=== PATIENT | male | born 1955 | race Caucasian/White ===

== ENCOUNTER 2017-12-10 12:58 | Observation (INO) ==
[2017-12-10] MEDS ORDERED: Sod Chloride 0.9% Inj 1,000 ML IV.SIG ONE (13:31)
--- NOTE | 2017-12-10 13:38 | ED ---
HPI General Chief complaint: Syncope Stated complaint: Medical Time Seen by Provider: 12/10/17 13:27 Source: patient and RN notes reviewed Mode of arrival: ambulatory Limitations: no limitations History of Present Illness HPI narrative: 62-year-old male presents to the emergency department for evaluation of bilateral eye blurriness. Patient states that he was traveling from [place] now [place]. He states that around noon he started having bilateral eye blurriness. He states it progressively worsened to where he would have trouble making out of vehicles and then would get slightly better and get worse again. He pulled over at a gas station do this over 911 was called. Patient states he has pain to the base of his neck. Patient reports history of cardiac stents on Plavix, vasovagal, hypertension. He reports associated lightheadedness. He denies chest pain or shortness of breath. Moderate severity. Onset (ago): hour(s) (1.5) Location: head Radiation: non-radiation Severity: moderate Severity scale (1-10): 6 Quality: dull Pain Consistency: constant Relieving factors: none Exacerbating factors: none Associated symptoms: other (visual changes) Related Data Home Medications Medication Instructions Recorded Confirmed Aspir-81 81 mg PO DAILY 12/10/17 12/10/17 carvedilol 12.5 mg PO BID 12/10/17 12/10/17 clonidine HCl 0.1 mg PO TID PRN 12/10/17 12/10/17 clopidogrel [Plavix] 75 mg PO DAILY 12/10/17 12/10/17 eyahh-1s-qfm-epa-fish oil [Stuart-3 2,000 mg PO DAILY 12/10/17 12/10/17 Fish Oil] ramipril 10 mg PO DAILY 12/10/17 12/10/17 Allergies Allergy/AdvReac Type Severity Reaction Status Date / Time hydralazine Allergy Chest Pain Verified 12/10/17 13:24 levofloxacin Allergy Dizziness Verified 12/10/17 13:24 metoprolol Allergy Bradycardia Verified 12/10/17 13:22 metronidazole Allergy Cough Verified 12/10/17 13:24 olmesartan Allergy Diarrhea Verified 12/10/17 13:24 Gupufow-Xly-Uvp Reductase Allergy Chills Verified 12/10/17 13:24 Inhibitor Review of Systems Except as stated in HPI: all other systems reviewed are negative [facility] Medical History Medical History Hx of heart artery stent (Chronic) Hypercholesteremia (Chronic) Hypertension (Chronic) CAD (coronary artery disease) (Chronic) Status post placement of implantable loop recorder (Chronic) Vasovagal near syncope (Chronic) Surgical History Surgical History Hx of appendectomy (Resolved) Social History Social History Substance History: No History of Abuse Second Hand Smoke Exposure: No Smoking Status: Never smoker How Often Do You Have a Drink Containing Alcohol: Never Recent Travel in [facility] within the Last 8 Weeks: No Recent Out of Country Travel within the Last 8 Weeks: No Immunization History Tetanus Immunization: <5 Years Hx Influenza Vaccine This Season: Yes Exam Narrative Exam Narrative: GENERAL: Well-nourished, well-developed male patient, ambulatory. Afebrile. SKIN: Focused skin assessment warm/dry. HEAD: Normocephalic. Atraumatic. EYES: No scleral icterus. No injection or drainage. PERRLA. EOM intact. ENT: Mucosa pink and moist. No erythema or exudates. No uvular edema. No uvular , palatal, or tonsillar deviation. Airway patent. Nasal turbinates appear normal without nasal blood, purulent drainage or septal hematoma. Bilateral tympanic membranes clear without erythema or perforation. NECK: Supple, trachea midline. No JVD or lymphadenopathy. CARDIOVASCULAR: Regular rate and rhythm without murmurs, gallops, or rubs. Bilateral radial and pedal pulses are 2+ RESPIRATORY: Breath sounds equal bilaterally. No accessory muscle use. Lung sounds are clear to auscultation GASTROINTESTINAL: Abdomen soft, non-tender, nondistended. MUSCULOSKELETAL: No cyanosis, or edema. Bilateral upper and lower extremity strength 5/5. All extremities are neurovascularly intact. BACK: Nontender without obvious deformity. NEUROLOGICAL: Awake and alert. Cranial nerves II through XII intact. Motor and sensory grossly within normal limits. Five out of 5 muscle strength in all muscle groups. Normal speech. Finger to nose is normal bilaterally. Heel to fischer is normal bilaterally. Course Initial Documented Vital Signs Temperature 98.2 F 12/10/17 13:19 Pulse Rate 63 12/10/17 13:19 Respiratory Rate 14 12/10/17 13:19 Blood Pressure 187/94 H 12/10/17 13:19 Pulse Oximetry 97 12/10/17 13:19 Last Documented Vital Signs Temperature 98.2 F 12/10/17 13:19 Pulse Rate 69 12/10/17 15:03 Respiratory Rate 15 12/10/17 15:03 Blood Pressure 163/91 H 12/10/17 15:03 Pulse Oximetry 97 12/10/17 15:03 Medical Decision Making YENNI Attestation YENNI supervised visit: Yes Attestation: The history, exam, and medical decision-making in the associated mid-level provider note were completed with my assistance. I reviewed and agree with the findings presented. I attest that I had a [id number] encounter with the patient on the same day, and personally performed and documented my assessment and findings in the medical record. *My assessment and Findings: Is a 62-year-old man who presents to the emergency department with intermittent binocular blurry vision. Medial little bit of pinkness with it, ongoing while he was driving. Etiology is unclear. He has had vasovagal syncopal episodes in the past. I think this is probably 8 given the binocular symptoms. Difficult to prove. Multiple risk factors for cerebrovascular disease. Recommend further evaluation admission for TIA rule out. MDM Narrative Medical decision making narrative: 62-year-old male presents to the emergency department for evaluation of lightheadedness, blurry vision. IV access is obtained. EKG, CBC, CMP, magnesium, CK, troponin, PTT, PT/INR, CT the brain are ordered and pending. Patient is given normal saline 1 L IV bolus EKG shows sinus rhythm, heart rate 60. CBC shows no acute abnormalities. CMP shows elevated creatinine 1.42, hyperglycemia 108. Magnesium is 2.3. CK is 92. Troponin is less than 0.02. PTT is 26.4. PT/INR is 9.8/1.0. CT of the brain is negative. Patient took his Plavix and his aspirin this morning. My attending physician, Dr. Contreras, also examined patient. He recommends admission for TIA workup. Differential Diagnosis Differential Diagnosis: TIA versus CVA versus adrenal hemorrhage versus electrolyte abnormality versus hypotension versus vasovagal Medical Records Medical records reviewed: Yes I reviewed the patient's medical records. Lab Data Result diagrams: 12/10/17 13:54 12/10/17 13:54 Lab Results 12/10/17 12/10/17 12/10/17 Range/Units 13:54 13:54 13:54 WBC 7.4 (4.0-11.0) th/mm3 RBC 4.63 (4.50-5.90) mil/mm3 Hgb 14.8 (13.0-17.0) gm/dL Hct 41.5 (39.0-51.0) % MCV 89.6 (80.0-100.0) fL MCH 32.0 (27.0-34.0) pg MCHC 35.7 (32.0-36.0) % RDW 14.1 (11.6-17.2) % Plt Count 230 (150-450) th/mm3 MPV 7.3 (7.0-11.0) fL Neut % (Auto) 61.0 (16.0-70.0) % Lymph % (Auto) 27.8 (9.0-44.0) % Sanborn % (Auto) 8.8 H (0.0-8.0) % Eos % (Auto) 1.7 (0.0-4.0) % Baso % (Auto) 0.7 (0.0-2.0) % Neut # (Auto) 4.5 (1.8-7.7) th/mm3 Lymph # (Auto) 2.1 (1.0-4.8) th/mm3 Sanborn # (Auto) 0.7 (0.0-0.9) th/mm3 Eos # (Auto) 0.1 (0.0-0.4) th/mm3 Baso # (Auto) 0.1 (0.0-0.2) th/mm3 WBC Differential . Differential Comment Auto diff final PT 9.8 (9.8-11.6) sec INR 1.0 Ratio APTT 26.4 (24.3-30.1) sec Sodium 141 (136-145) meq/L Potassium 3.8 (3.5-5.1) meq/L Chloride 107 (98-107) meq/L Carbon Dioxide 25.2 (21.0-32.0) meq/L Anion Gap 9 (5-15) meq/L BUN 14 (7-18) mg/dL Creatinine 1.42 H (0.60-1.30) mg/dL Estimated GFR 50 L (>89) mL/min Random Glucose 108 H (74-106) mg/dL Calcium 8.4 L (8.5-10.1) mg/dL Magnesium (1.5-2.5) mg/dL Total Bilirubin 0.4 (0.2-1.0) mg/dL AST 21 (15-37) U/L ALT 30 (12-78) U/L Alkaline Phosphatase 73 (45-117) U/L Total Creatine Kinase 92 (39-308) U/L Troponin I Less than 0.02 L (0.02-0.05) ng/mL Total Protein 7.3 (6.4-8.2) g/dL Albumin 3.6 (3.4-5.0) g/dL 12/10/17 Range/Units 13:54 WBC (4.0-11.0) th/mm3 RBC (4.50-5.90) mil/mm3 Hgb (13.0-17.0) gm/dL Hct (39.0-51.0) % MCV (80.0-100.0) fL MCH (27.0-34.0) pg MCHC (32.0-36.0) % RDW (11.6-17.2) % Plt Count (150-450) th/mm3 MPV (7.0-11.0) fL Neut % (Auto) (16.0-70.0) % Lymph % (Auto) (9.0-44.0) % Sanborn % (Auto) (0.0-8.0) % Eos % (Auto) (0.0-4.0) % Baso % (Auto) (0.0-2.0) % Neut # (Auto) (1.8-7.7) th/mm3 Lymph # (Auto) (1.0-4.8) th/mm3 Sanborn # (Auto) (0.0-0.9) th/mm3 Eos # (Auto) (0.0-0.4) th/mm3 Baso # (Auto) (0.0-0.2) th/mm3 WBC Differential Differential Comment PT (9.8-11.6) sec INR Ratio APTT (24.3-30.1) sec Sodium (136-145) meq/L Potassium (3.5-5.1) meq/L Chloride (98-107) meq/L Carbon Dioxide (21.0-32.0) meq/L Anion Gap (5-15) meq/L BUN (7-18) mg/dL Creatinine (0.60-1.30) mg/dL Estimated GFR (>89) mL/min Random Glucose (74-106) mg/dL Calcium (8.5-10.1) mg/dL Magnesium 2.3 (1.5-2.5) mg/dL Total Bilirubin (0.2-1.0) mg/dL AST (15-37) U/L ALT (12-78) U/L Alkaline Phosphatase (45-117) U/L Total Creatine Kinase (39-308) U/L Troponin I (0.02-0.05) ng/mL Total Protein (6.4-8.2) g/dL Albumin (3.4-5.0) g/dL Imaging Data Radiologist's impression: Head CT 12/10/17 13:31 CONCLUSION: 1. Negative CT Head non contrast. . Discharge Plan Discharge Disposition Patient Disposition: 30 Still Patient Discharge Details Diagnosis: Visual changes Physicians Team ED Provider: Hi Falcon ED Midlevel Provider: Saadia Spicer Primary Care Provider: UNKNOWN, Rxs /Orders / Referrals /Forms Prescriptions: No Action Aspir-81 81 mg PO DAILY RF: 0 clonidine HCl 0.1 mg Tablet 0.1 mg PO TID PRN (Reason: Hypertension) RF: 0 carvedilol 12.5 mg Tablet 12.5 mg PO BID RF: 0 clopidogrel [Plavix] 75 mg Tablet 75 mg PO DAILY RF: 0 ramipril 10 mg Capsule 10 mg PO DAILY RF: 0 cejuz-1g-flb-epa-fish oil [Stuart-3 Fish Oil] 300-1,000 mg Capsule 2,000 mg PO DAILY RF: 0 Discharge Interventions Interventions: Vital Signs Last Done: 12/10/17 15:03 Status ED Status: With Doctor
[2017-12-10 14:05] LABS: Baso # (Auto) 0.1 th/mm3 (0.0-0.2); Baso % (Auto) 0.7 % (0.0-2.0); Eos # (Auto) 0.1 th/mm3 (0.0-0.4); Eos % (Auto) 1.7 % (0.0-4.0); Hematocrit 41.5 % (39.0-51.0); Hemoglobin 14.8 gm/dL (13.0-17.0); Lymph # (Auto) 2.1 th/mm3 (1.0-4.8); Lymph % (Auto) 27.8 % (9.0-44.0); Mean Corpuscular HGB Conc 35.7 % (32.0-36.0); Mean Corpuscular Volume 89.6 fL (80.0-100.0); Mean Platelet Volume 7.3 fL (7.0-11.0); Mono # (Auto) 0.7 th/mm3 (0.0-0.9); Mono % (Auto) 8.8 % (0.0-8.0); Neut # (Auto) 4.5 th/mm3 (1.8-7.7); Platelet Count 230 th/mm3 (150-450); Red Blood Count 4.63 mil/mm3 (4.50-5.90); Red Cell Distribution Width 14.1 % (11.6-17.2); White Blood Count 7.4 th/mm3 (4.0-11.0)
[2017-12-10 14:13] LABS: Activated Partial Thrombo Time 26.4 sec (24.3-30.1); Prothrombin Time 9.8 sec (9.8-11.6)
[2017-12-10 14:34] LABS: Alanine Aminotransferase 30 U/L (12-78); Albumin 3.6 g/dL (3.4-5.0); Alkaline Phosphatase 73 U/L (45-117); Anion Gap 9 meq/L (5-15); Aspartate Aminotransferase 21 U/L (15-37); Blood Urea Nitrogen 14 mg/dL (7-18); Calcium 8.4 mg/dL (8.5-10.1); Carbon Dioxide 25.2 meq/L (21.0-32.0); Chloride 107 meq/L (98-107); Glomerular Filtration Rate 50 mL/min (>89); Glucose,Random 108 mg/dL (74-106); Potassium 3.8 meq/L (3.5-5.1); Sodium 141 meq/L (136-145); Total Protein 7.3 g/dL (6.4-8.2)
[2017-12-10 14:37] LABS: Creatine Kinase 92 U/L (39-308)
--- NOTE | 2017-12-10 14:47 | CT ---
EXAM DATE: 12/10/2017 2:45 PM EDT AGE/SEX: 62 years / Male INDICATIONS: Dizziness, visual disturbance, numbness in left fingers. CLINICAL DATA: This is the patient's initial encounter. Patient reports that signs and symptoms have been present for 1 day and indicates a pain score of 2/10. MEDICAL/SURGICAL HISTORY: Hypertension. Carotid stent. Appendectomy. RADIATION DOSE: 35.68 CTDI (mGy) COMPARISON: No prior exams available for comparison. TECHNIQUE: CT of the head without contrast. Using automated exposure control and adjustment of the mA and/or kV according to patient size, radiation dose was kept as low as reasonably achievable to ob tain optimal diagnostic quality images. DICOM format image data is available electronically for revi ew and comparison. FINDINGS: Cerebrum: The ventricles are normal for age. No evidence of midline shift, mass lesion, hemorrhage or acute infarction. No extraaxial fluid collections are seen. Posterior Fossa: The cerebellum and brainstem are intact. The 4th ventricle is midline. The cerebe llopontine angle is unremarkable. Extracranial: The visualized portion of the orbits is intact. Skull: The calvaria is intact. No evidence of skull fracture. CONCLUSION: 1. Negative CT Head non contrast. . Electronically signed by: Jason Sam MD 12/10/2017 2:46 PM EDT
--- NOTE | 2017-12-10 16:22 | P.HPFP ---
History of Present Illness Primary Care Physician: UNKNOWN <Jose Goetz 12/11/17 14:15> UNKNOWN <Vaibhav Arceo 12/10/17 16:22> Chief Complaint: blurry vision <Vaibhav riley 12/10/17 17:24> History of Present Illness: 61-year-old male with history of hypertension, coronary artery disease, vasovagal hypertension presents with blurry vision. Patient [place] [address] [place] to [place], where they just moved, when he started having blurry vision. He also felt lightheaded and weak at that time. He pulled off the road. Also started having a headache in the back of his neck. [place] here to the hospital. He states it started suddenly. [place] like he was going to pass out. Thought initially it was allergies. Denies any pain. Did not lose his vision, just blurry. States he felt some tingling on his left fourth and fifth fingers. Denies any bowel or bladder changes. States he has never had anything like this before. Does not drink alcohol. No recent medication changes. Has never passed out, but does have vasovagal symptoms occasionally. Denies any weakness. Denies any slurred speech. Never a smoker. States he drinks lots of water. Just established with a new PCP in [place] on Friday. 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 <Vaibhav Arceo 12/10/17 17:24> - Diagnosis (1) Visual changes (2) HTN (hypertension) (3) Elevated serum creatinine (4) CAD (coronary artery disease) (5) Nutrition, metabolism, and development symptoms <Jose Goetz 12/11/17 14:15> (1) Visual changes (2) HTN (hypertension) (3) Elevated serum creatinine (4) CAD (coronary artery disease) (5) Nutrition, metabolism, and development symptoms <Vaibhav Arceo 12/10/17 17:01> Review of Systems Constitutional: Denies chills, Denies fever(s), Denies night sweats, Denies weight loss <Vaibhav Arceo 12/10/17 16:22> Eyes: Reports blurry vision, Denies discharge <Vaibhav Arceo 12/10/17 16: 22> Ears, Nose, Mouth, and Throat: Denies abnormal hearing, Denies difficulty swallowing, Denies facial pain, Denies nasal discharge, Denies neck lump, Denies sore throat <MortezarosemaryVaibhav Mejia 12/10/17 16:22> Cardiovascular: Denies chest pain, Denies shortness of breath <LaynerennyVaibhav 12/10/17 16:22> Gastrointestinal: Denies change in stools, Denies coffee ground vomit, Denies nausea, Denies vomiting <LaynerennyVaibhav 12/10/17 16:22> Musculoskeletal: Denies abnormal walking, Denies back pain, Denies muscle cramps , Denies muscle weakness <MortezarosemaryVaibhav 12/10/17 17:24> Skin/Breast: Denies rash <LaynerennyVaibhav 12/10/17 17:24> Neurologic: Reports confusion, Reports dizziness, Reports headache(s), Reports tingling, Denies fainting, Denies frequent falls, Denies memory loss, Denies radiating pain, Denies restless legs, Denies convulsions, Denies seizure-like activity, Denies sensory deficit, Denies tremor(s) <MortezarosemaryVaibhav 16:22> Psychiatric: Denies anxiety, Denies mood swings, Denies panic attacks <Mortezarosemary Vaibhav 12/10/17 17:24> Endocrine: Denies cold intolerance, Denies excessive sweating, Denies rapid, pounding, or irregular heartbeat <Vaibhav Arceo 12/10/17 17:24> [facility] - History History Provided By: Butadiene Converter Operator / EMT <MortezarosemaryVaibhav Mejia 12/10/17 16:22> - Medical History Medical History: Medical History (Last Updated 12/10/17 @ 13:56 by Hi Falcon MD) Hx of heart artery stent Hypercholesteremia Hypertension CAD (coronary artery disease) Status post placement of implantable loop recorder Vasovagal near syncope <Jose Goetz - 12/11/17 14:15> Medical History (Last Updated 12/10/17 @ 13:56 by Hi Falcon MD) Hx of heart artery stent Hypercholesteremia Hypertension CAD (coronary artery disease) Status post placement of implantable loop recorder Vasovagal near syncope <LaynerennyVaibhav Roberto 12/10/17 16:22> - Surgical History Surgical History: Surgical History (Last Reviewed 12/10/17 @ 13:53 by Hi Falcon MD) Hx of appendectomy <Jose Goetz - 12/11/17 14:15> Surgical History (Last Reviewed 12/10/17 @ 13:53 by Hi Falcon MD) Hx of appendectomy <LayneVaibhav lawson 12/10/17 16:22> - Tobacco History Second Hand Smoke Exposure: No <LaynerennyVaibhav Roberto 12/10/17 16:22> Smoking Status: Never smoker <MortezarosemaryVaibhav Roberto Munoz 12/10/17 16:22> - Alcohol History How Often Do You Have a Drink Containing Alcohol: Monthly or less <MortezaVaibhav riley 12/10/17 17:24> - Substance Use History Substance History: No History of Abuse <MortezaVaibhav riley 12/10/17 16:22> - Travel History [facility] Travel in the [facility] Within the Last 8 Weeks: No <LayneVaibhav lawson 12/10 16:22> Recent Travel Out of the Country Within the Last 8 Weeks: No <MortezaVaibhav riley 12/10/17 16:22> - Immunization History Tetanus Immunization: <5 Years <LaynerennyVaibhav Roberto 12/10/17 16:22> Hx Influenza Vaccine This Season: Yes <MortezaVaibhav riley 12/10/17 16:22> Medications and Allergies Allergies Allergy/AdvReac Type Severity Reaction Status Date / Time hydralazine Allergy Chest Pain Verified 12/10/17 13:24 levofloxacin Allergy Dizziness Verified 12/10/17 13:24 metoprolol Allergy Bradycardia Verified 12/10/17 13:22 metronidazole Allergy Cough Verified 12/10/17 13:24 olmesartan Allergy Diarrhea Verified 12/10/17 13:24 [id number]-[id number] Reductase Allergy Chills Verified 12/10/17 13:24 Inhibitor <Jose Goetz - 12/11/17 14:15> Home Medications Medication Instructions Recorded Confirmed Type Aspir-81 81 mg PO DAILY 12/10/17 12/10/17 History RX: carvedilol 12.5 mg PO BID 12/10/17 12/10/17 History RX: clonidine HCl 0.1 mg PO TID PRN 12/10/17 12/10/17 History RX: clopidogrel [Plavix] 75 mg PO DAILY 12/10/17 12/10/17 History RX: oiumz-2n-tav-epa-fish oil 2,000 mg PO DAILY 12/10/17 12/10/17 History [[place]-3 Fish Oil] RX: ramipril 10 mg PO DAILY 12/10/17 12/10/17 History <Jose Goetz - 12/11/17 14:15> Active Medications: Active Medications Sodium Chloride (Ns Flush) 2 ml IV.FLUSH PRN PRN PRN Reason: FLUSH AFTER USING IV ACCESS <Vaibhav Arceo - 12/10/17 16:22> Exam Vital signs: Vital Signs 12/10/17 15:03 12/10/17 16:46 12/10/17 18:18 Temperature 98.0 F Pulse Rate 69 69 62 Respiratory Rate 15 16 14 Blood Pressure 163/91 H 169/105 H 175/99 H Pulse Oximetry 97 99 99 12/10/17 18:23 12/10/17 20:09 12/10/17 22:43 Temperature 97.9 F 97.9 F Pulse Rate 64 60 57 L Respiratory Rate 17 16 Blood Pressure 172/102 H 140/89 118/70 Pulse Oximetry 97 96 12/11/17 03:47 12/11/17 03:48 12/11/17 03:51 Temperature 97.4 F L 97.4 F L 97.4 F L Pulse Rate 59 L 60 55 L Respiratory Rate 16 16 16 Blood Pressure 116/73 131/78 141/88 H Pulse Oximetry 96 95 95 12/11/17 08:00 12/11/17 08:21 12/11/17 08:23 Temperature 98.7 F 98.7 F Pulse Rate 60 57 L 58 L Respiratory Rate 18 18 Blood Pressure 137/84 154/89 H Pulse Oximetry 97 96 12/11/17 08:24 12/11/17 12:18 Temperature 98.7 F Pulse Rate 62 63 Respiratory Rate 18 18 Blood Pressure 159/94 H 168/84 H Pulse Oximetry 97 98 Intake & Output 12/10/17 12/11/17 12/11/17 18:59 06:59 18:59 Intake Total 1000 / 1000 50 / 50 Balance 1000 / 1000 50 / 50 Weight 83.915 kg Intake: IV 1000 / 1000 NS Inj 1,000 ML @ Wide Open IV. 1000 / 1000 SIG BOLUS ONE Rx#:[id number] Oral 50 / 50 Other: # Voids 1 Date of Last Bowel Movement 12/10/17 Weight On Admission 83.915 kg <Jose Goetz - 12/11/17 14:15> Vital Signs 12/10/17 13:19 12/10/17 13:28 12/10/17 14:03 Temperature 98.2 F Pulse Rate 63 63 Respiratory Rate 14 16 Blood Pressure 187/94 H 186/91 H Pulse Oximetry 97 97 97 12/10/17 15:03 Temperature Pulse Rate 69 Respiratory Rate 15 Blood Pressure 163/91 H Pulse Oximetry 97 Intake & Output 12/09/17 12/10/17 12/10/17 18:59 06:59 18:59 Weight 83.915 kg <Vaibhav Arceo - 12/10/17 16:22> Narrative: GENERAL: well developed, normal mood and affect, answers questions appropriately. NEUROLOGICAL: Speech- Fluent. No dysarthria or dysphasia. Good focus, attention , and comprehension. Cranial nerves- 2 through 12 intact. Face- No facial droop. No tongue deviation. 5/5 strength bilaterally. Pronator drift test-negative Babinski-negative No hemispace neglect. Able to repeat phrases. Able to name simple objects. Shot term memory intact. PSYCHIATRIC: fair insight. No overt depression. EYES: PERRLA. EOMI. Lids and conjunctivae reveal no gross abnormality. No scleral itcterus. ENT: Hearing adequate. NCAT. MMM. OP/OC clear. No cervical or supraclavicular LAD. NECK: Full ROM. No stiffness. No carotid bruits. Supple, no masses. Trachea midline. No thyromegaly. RESPIRATORY: CTAB, no wheezing, crackles, or increased WOB. CARDIOVASCULAR: RRR, no m/r/g. Normal S1, S2 heart sounds. Radial and DP pulses 2+ and symmetric bilaterally. Brisk capillary refill. ABDOMEN: S/ NT/ND. Bowel sounds x 4. No masses or pulsations present. No hepatosplenomegaly. EXTREMITIES: No remarkable dependent edema or varicosities. No clubbing, cyanosis, or erythema. MUSCULOSKELETAL: No calf tenderness. SKIN: Essentially clear with no significant rash or lesions. Adequate skin turgor. <LaynerennyVaibhav Roberto - 12/10/17 17:24> Results - Labs Result diagrams: 12/11/17 03:09 12/11/17 03:09 <Jose Goetz - 12/11/17 14:15> Abnormal lab results 12/10/17 12/10/17 12/11/17 Range/Units 13:54 20:53 03:09 RBC (4.50-5.90) mil/mm3 [place] % (Auto) (0.0-8.0) % Chloride (98-107) meq/L Creatinine 1.42 H (0.60-1.30) mg/dL Estimated GFR 50 L (>89) mL/min Random Glucose 108 H (74-106) mg/dL Calcium 8.4 L (8.5-10.1) mg/dL Troponin I Less than 0.02 L Less than 0.02 L Less than 0.02 L (0.02-0.05) ng/mL Triglycerides (42-150) mg/dL HDL Cholesterol (40.0-60.0) mg/dL 12/11/17 12/11/17 Range/Units 03:09 03:09 RBC 4.39 L (4.50-5.90) mil/mm3 [place] % (Auto) 9.2 H (0.0-8.0) % Chloride 109 H (98-107) meq/L Creatinine 1.32 H (0.60-1.30) mg/dL Estimated GFR 55 L (>89) mL/min Random Glucose (74-106) mg/dL Calcium (8.5-10.1) mg/dL Troponin I (0.02-0.05) ng/mL Triglycerides 392 H (42-150) mg/dL HDL Cholesterol 29.5 L (40.0-60.0) mg/dL Short CBC 12/11/17 Range/Units 03:09 WBC 6.0 (4.0-11.0) th/mm3 Hgb 13.9 (13.0-17.0) gm/dL Hct 39.7 (39.0-51.0) % Plt Count 212 (150-450) th/mm3 [facility] 12/10/17 12/11/17 13:54 03:09 Sodium 141 142 Potassium 3.8 4.1 Chloride 107 109 H Carbon Dioxide 25.2 27.7 BUN 14 15 Creatinine 1.42 H 1.32 H Calcium 8.4 L 8.6 Cardiac Enzymes 12/10/17 12/10/17 12/11/17 Range/Units 13:54 20:53 03:09 Total Creatine Kinase 92 (39-308) U/L Troponin I Less than 0.02 L Less than 0.02 L Less than 0.02 L (0.02-0.05) ng/mL Liver Function 12/10/17 Range/Units 13:54 Total Bilirubin 0.4 (0.2-1.0) mg/dL AST 21 (15-37) U/L ALT 30 (12-78) U/L Alkaline Phosphatase 73 (45-117) U/L Albumin 3.6 (3.4-5.0) g/dL <Jose Goetz - 12/11/17 14:15> Abnormal lab results 12/10/17 12/10/17 Range/Units 13:54 13:54 [place] % (Auto) 8.8 H (0.0-8.0) % Creatinine 1.42 H (0.60-1.30) mg/dL Estimated GFR 50 L (>89) mL/min Random Glucose 108 H (74-106) mg/dL Calcium 8.4 L (8.5-10.1) mg/dL Troponin I Less than 0.02 L (0.02-0.05) ng/mL Short CBC 12/10/17 Range/Units 13:54 WBC 7.4 (4.0-11.0) th/mm3 Hgb 14.8 (13.0-17.0) gm/dL Hct 41.5 (39.0-51.0) % Plt Count 230 (150-450) th/mm3 [facility] 12/10/17 13:54 Sodium 141 Potassium 3.8 Chloride 107 Carbon Dioxide 25.2 BUN 14 Creatinine 1.42 H Calcium 8.4 L Cardiac Enzymes 12/10/17 Range/Units 13:54 Total Creatine Kinase 92 (39-308) U/L Troponin I Less than 0.02 L (0.02-0.05) ng/mL Liver Function 12/10/17 Range/Units 13:54 Total Bilirubin 0.4 (0.2-1.0) mg/dL AST 21 (15-37) U/L ALT 30 (12-78) U/L Alkaline Phosphatase 73 (45-117) U/L Albumin 3.6 (3.4-5.0) g/dL <Vaibhav Arceo 12/10/17 16:22> - Imaging Impressions Carotid Doppler Study 12/10/17 00:00 CONCLUSION: 1. Right Internal Carotid Artery: No significant stenosis or atherosclerotic plaque is visualized. 2. Left Internal Carotid Artery: No significant stenosis or atherosclerotic plaque is visualized. Head MRI 12/10/17 00:00 CONCLUSION: 1. Negative exam with no evidence of stroke, mass or hemorrhage. Head MRA 12/10/17 00:00 CONCLUSION: 1. Unremarkable examination. Head CT 12/10/17 13:31 CONCLUSION: 1. Negative CT Head non contrast. . <Jose Goetz 12/11/17 14:15> Impressions Head CT 12/10/17 13:31 CONCLUSION: 1. Negative CT Head non contrast. . <Vaibhav Arceo 12/10/17 16:22> Caprini VTE Risk Assessment Caprini VTE Risk Assessment: Moderate/High Risk (score >= 2) <Vaibhav Arceo 12/10/17 17:24> Caprini Risk Assessment Model: Point Value = 1 Point Value = 2 Point Value = 3 Point Value = 5 Age 41-60 Minor surgery BMI > 25 kg/m2 Swollen legs Varicose veins or History of unexplained or recurrent spontaneous Oral contraceptives or hormone replacement Sepsis (< 1 month) Serious lung disease, including pneumonia (< 1 month) Abnormal pulmonary function Acute myocardial infarction Congestive heart failure (< 1 month) History of inflammatory bowel disease Medical patient at bed rest Age 61-74 Arthroscopic surgery Major open surgery (> 45 min) Laparoscopic surgery (> 45 min) Malignancy Confined to bed (> 72 hours) Immobilizing plaster cast Central venous access Age >= 75 History of VTE Family history of VTE Factor V Leiden Prothrombin [id number] Lupus anticoagulant Anticardiolipin antibodies Elevated serum homocysteine Heparin-induced thrombocytopenia Other congenital or acquired thrombophilia Stroke (< 1 month) Elective arthroplasty Hip, pelvis, or leg fracture Acute spinal cord injury (< 1 month) <Jose Goetz 12/11/17 14:15> Point Value = 1 Point Value = 2 Point Value = 3 Point Value = 5 Age 41-60 Minor surgery BMI > 25 kg/m2 Swollen legs Varicose veins or History of unexplained or recurrent spontaneous Oral contraceptives or hormone replacement Sepsis (< 1 month) Serious lung disease, including pneumonia (< 1 month) Abnormal pulmonary function Acute myocardial infarction Congestive heart failure (< 1 month) History of inflammatory bowel disease Medical patient at bed rest Age 61-74 Arthroscopic surgery Major open surgery (> 45 min) Laparoscopic surgery (> 45 min) Malignancy Confined to bed (> 72 hours) Immobilizing plaster cast Central venous access Age >= 75 History of VTE Family history of VTE Factor V Leiden Prothrombin [id number] Lupus anticoagulant Anticardiolipin antibodies Elevated serum homocysteine Heparin-induced thrombocytopenia Other congenital or acquired thrombophilia Stroke (< 1 month) Elective arthroplasty Hip, pelvis, or leg fracture Acute spinal cord injury (< 1 month) <Vaibhav Arceo - 12/10/17 17:24> Prophylaxis Regimen: Total Risk Factor Score Risk Level Prophylaxis Regimen 0-1 Low Early ambulation 2 Moderate Order ONE of the following: *Sequential Compression Device (SCD) *Heparin 5000 units SQ BID 3-4 Higher Order ONE of the following medications: *Heparin 5000 units SQ TID *Enoxaparin/Lovenox 40 mg SQ daily (WT < 150 kg, CrCl > 30 mL/min) *Enoxaparin/Lovenox 30 mg SQ daily (WT < 150 kg, CrCl > 10-29 mL/min) *Enoxaparin/Lovenox 30 mg SQ BID (WT < 150 kg, CrCl > 30 mL/min) AND/OR *Sequential Compression Device (SCD) 5 or more Highest Order ONE of the following medications: *Heparin 5000 units SQ TID (Preferred with Epidurals) *Enoxaparin/Lovenox 40 mg SQ daily (WT < 150 kg, CrCl > 30 mL/min) *Enoxaparin/Lovenox 30 mg SQ daily (WT < 150 kg, CrCl > 10-29 mL/min) *Enoxaparin/Lovenox 30 mg SQ BID (WT < 150 kg, CrCl > 30 mL/min) AND *Sequential Compression Device (SCD) <Jose Goetz - 12/11/17 14:15> Total Risk Factor Score Risk Level Prophylaxis Regimen 0-1 Low Early ambulation 2 Moderate Order ONE of the following: *Sequential Compression Device (SCD) *Heparin 5000 units SQ BID 3-4 Higher Order ONE of the following medications: *Heparin 5000 units SQ TID *Enoxaparin/Lovenox 40 mg SQ daily (WT < 150 kg, CrCl > 30 mL/min) *Enoxaparin/Lovenox 30 mg SQ daily (WT < 150 kg, CrCl > 10-29 mL/min) *Enoxaparin/Lovenox 30 mg SQ BID (WT < 150 kg, CrCl > 30 mL/min) AND/OR *Sequential Compression Device (SCD) 5 or more Highest Order ONE of the following medications: *Heparin 5000 units SQ TID (Preferred with Epidurals) *Enoxaparin/Lovenox 40 mg SQ daily (WT < 150 kg, CrCl > 30 mL/min) *Enoxaparin/Lovenox 30 mg SQ daily (WT < 150 kg, CrCl > 10-29 mL/min) *Enoxaparin/Lovenox 30 mg SQ BID (WT < 150 kg, CrCl > 30 mL/min) AND *Sequential Compression Device (SCD) <Vaibhav Arceo - 12/10/17 17:24> Assessment and Plan - Assessment (1) Visual changes Code(s): H53.9 - Unspecified visual disturbance Status: Acute (2) HTN (hypertension) Code(s): I10 - Essential (primary) hypertension Status: Acute (3) Elevated serum creatinine Code(s): R79.89 - Other specified abnormal findings of blood chemistry Status : Acute (4) CAD (coronary artery disease) Code(s): I25.10 - Atherosclerotic heart disease of eek coronary artery without angina pectoris Status: Acute (5) Nutrition, metabolism, and development symptoms Code(s): R63.8 - Other symptoms and signs concerning food and fluid intake Status: Acute <Jose Goetz - 12/11/17 14:15> (1) Visual changes Code(s): H53.9 - Unspecified visual disturbance Status: Acute Plan: DDx: TIA vs HTN urgency vs ACS vs vasovagal Vascular risk factors include age, HTN, CAD, [place]. Physical exam within normal limits BP elevated to 187/[address] was negative for bleeding. -MRI brain to r/o ischemic stroke. -MRA brain and US carotids ordered. -EKG does not show evidence of atrial fibrillation or infarct. -ACS rule out. Trend troponins/EKG -2D ECHO orderd for the AM -Pt allergic to statin; continue plavix and aspirin -Neuro checks q4 hrs. -Telemetry -Bedrest with fall precautions. -If pt passes bedside swallow, will allow for heart healthy diet. -Allow for permissive HTN -Consult neuro if signs of stroke (2) HTN (hypertension) Code(s): I10 - Essential (primary) hypertension Status: Acute Plan: On home Coreg, ramipril and clonidine -Hold home meds to allow for permissive HTN -PRN vasotec if needed (3) Elevated serum creatinine Code(s): R79.89 - Other specified abnormal findings of blood chemistry Status : Acute Plan: Creatinine 1.42 on admission, unsure of baseline -Trend BMP -Monitor I/O -Avoid nephrotoxic agents (4) CAD (coronary artery disease) Code(s): I25.10 - Atherosclerotic heart disease of eek coronary artery without angina pectoris Status: Acute Plan: Continue home Plavix (5) Nutrition, metabolism, and development symptoms Code(s): R63.8 - Other symptoms and signs concerning food and fluid intake Status: Acute Plan: Fluids: Tolerating PO; If doesn't pass swallow study, may need IVF Electrolytes: monitor, replace PRN Nutrition: heart healthy if passes swallow study DVT ppx: Lovenox 40mg daily <Vaibhav Arceo - 12/10/17 17:01> - Assessment and Plan 62-year-old male with history of hypertension, coronary artery disease presents with blurry vision. Admit with workup of TIA vs hypertension urgency vs cardiac cause. <Vaibhav Arceo - 12/10/17 17:24> - Attending Attestation The exam, history, and the medical decision-making described in the above note were completed with the assistance of the resident physician. I reviewed and agree with the findings presented. I attest that I had a [id number] encounter with the patient on the same day, and personally performed and documented my assessment and findings in the medical record. <Jose Goetz - 12/11/17 14:15>
[2017-12-10] MEDS ORDERED: Dextrose 50% in Water 50 ML Vial IV.PUSH PRN (16:43)
[2017-12-10] MEDS ORDERED: Acetaminophen 325 MG Tablet PO PRN (16:59)
[2017-12-10] MEDS ORDERED: Enoxaparin Inj 40 MG/0.4 ML Syringe SQ SCH (18:00)
[2017-12-10] MEDS: Insulin NovoLOG Aspart Correctional Sugar Inj SQ SCH (18:35)
--- NOTE | 2017-12-10 22:39 | US ---
EXAM DATE: 12/10/2017 9:00 PM EDT AGE/SEX: 62 years / Male INDICATIONS: Visual changes. Transient ischemic attack. CLINICAL DATA: This is the patient's initial encounter. Patient reports that signs and symptoms have been present for 1 day and indicates a pain score of 0/10. MEDICAL/SURGICAL HISTORY: . Hypertension. Hypercholesterolemia. Coronary artery disease. . Cardiac stent. Appendectomy. COMPARISON: No prior exams available for comparison. VELOCITY PARAMETERS: ICA/CCA Ratio: Right 0.9 , Left 0.7 ICA: Right 77 cm/sec, Left 59 cm/sec CCA: Right 83 cm/sec, Left 89 cm/sec ECA: Right 89 cm/sec, Left 71 cm/sec Vertebral: Right 50 cm/sec antegrade, Left 47 cm/sec antegrade FINDINGS: Right Carotid: Mild arteriosclerotic plaque is visualized.The waveforms are within normal limits. Left Carotid: No significant plaque is visualized. The waveforms are within normal limits. Other: None. CONCLUSION: 1. Right Internal Carotid Artery: No significant stenosis or atherosclerotic plaque is visualized. 2. Left Internal Carotid Artery: No significant stenosis or atherosclerotic plaque is visualized. Electronically signed by: Panda Rodriguez MD 12/10/2017 10:38 PM EDT
--- NOTE | 2017-12-10 23:08 | MR ---
EXAM DATE: 12/10/2017 10:56 PM EDT AGE/SEX: 62 years / Male INDICATIONS: Dizziness. Blurred vision. TIA. CLINICAL DATA: This is the patient's initial encounter. Patient reports that signs and symptoms have been present for 1 day and indicates a pain score of 0/10. MEDICAL/SURGICAL HISTORY: Hypertension. Cardiovascular disease. Appendectomy. Coronary artery stent. COMPARISON: [facility] [place], MR HEAD W/O CONTRAST, 12/10/2017. . TECHNIQUE: 3D [id number] MRA was performed. Source images, multiplanar STS MIP, and 3D volum e MIP reconstructions were reviewed. FINDINGS: There is excellent visualization of the major intracranial arteries out to the second-order branch ve ssels. There is no evidence for aneurysm, vessel truncation or stenosis, and no evidence for vascula r malformation. CONCLUSION: 1. Unremarkable examination. Electronically signed by: Rasta Delgado MD 12/10/2017 11:07 PM EDT
--- NOTE | 2017-12-10 23:11 | MR ---
EXAM DATE: 12/10/2017 10:56 PM EDT AGE/SEX: 62 years / Male INDICATIONS: Dizziness. Blurred vision. TIA. CLINICAL DATA: This is the patient's subsequent encounter. Patient reports that signs and symptoms h ave been present for 1 day and indicates a pain score of 0/10. MEDICAL/SURGICAL HISTORY: Hypertension. Cardiovascular disease. Coronary artery stent. Append ectomy. COMPARISON: [facility] [place], MRA HEAD W/O CONTRAST, 12/10/2017. . TECHNIQUE: Multiplanar, multisequence examination of the brain was performed without contrast. FINDINGS: Cerebrum: The ventricles are normal for age. No evidence of midline shift, mass lesion, hemorrhage or acute infarction. No extraaxial fluid collections are seen. The pituitary gland and suprasellar cistern are normal in configuration. White Matter: No significant signal abnormalities are seen in the white matter. Posterior Fossa: The cerebellum and brainstem are intact. The 4th ventricle is midline. The cerebel lopontine angle is unremarkable. The cerebellar tonsils are normal in position. Diffusion Imaging: No focal areas of restricted diffusion are seen. No evidence of acute infarction . Extracranial: The visualized portions of the orbits and paranasal sinuses are unremarkable. CONCLUSION: 1. Negative exam with no evidence of stroke, mass or hemorrhage. Electronically signed by: Rasta Delgado MD 12/10/2017 11:09 PM EDT
[2017-12-11] MEDS: Insulin NovoLOG Aspart Correctional Sugar Inj SQ SCH ×2 (01:55→08:10)
[2017-12-11 03:28] LABS: Baso % (Auto) 0.6 % (0.0-2.0); Eos # (Auto) 0.1 th/mm3 (0.0-0.4); Eos % (Auto) 2.4 % (0.0-4.0); Hematocrit 39.7 % (39.0-51.0); Hemoglobin 13.9 gm/dL (13.0-17.0); Lymph # (Auto) 2.3 th/mm3 (1.0-4.8); Lymph % (Auto) 38.5 % (9.0-44.0); Mean Corpuscular Hemoglobin 31.6 pg (27.0-34.0); Mean Corpuscular Volume 90.4 fL (80.0-100.0); Mean Platelet Volume 7.4 fL (7.0-11.0); Mono # (Auto) 0.6 th/mm3 (0.0-0.9); Mono % (Auto) 9.2 % (0.0-8.0); Neut % (Auto) 49.3 % (16.0-70.0); Platelet Count 212 th/mm3 (150-450); Red Blood Count 4.39 mil/mm3 (4.50-5.90); Red Cell Distribution Width 14.2 % (11.6-17.2)
[2017-12-11 03:46] LABS: Calcium 8.6 mg/dL (8.5-10.1); Carbon Dioxide 27.7 meq/L (21.0-32.0); Potassium 4.1 meq/L (3.5-5.1)
[2017-12-11 03:49] LABS: Chol/HDL Ratio 5.86 Ratio; HDL Cholesterol 29.5 mg/dL (40.0-60.0)
[2017-12-11] MEDS ORDERED: Carvedilol 12.5 MG Tablet PO SCH (12:00)
--- NOTE | 2017-12-11 13:40 | ECG ---
Date Performed: 12/11/2017 Time Performed: 01:36:46 PTAGE: 62 years EKG: ATRIAL FIBRILLATION WITH SLOW VENTRICULAR RESPONSE POSSIBLE ANTERIOR MYOCARDIAL INFARCTION ABNORMAL ECG Since the PREVIOUS TRACING , no significant change noted PREVIOUS TRACIN12/10/2017 13.46 DOCTOR: Stephan Teran Interpretating Date/Time 12/11/2017 13:39:09
--- NOTE | 2017-12-11 14:14 | P.PNFP ---
Subjective Interval history: Patient seen with residents during medical rounds this morning. Patient has no complaints except for continued, mild headache located in the posterior aspect of his head. He denies any visual changes or blurred vision, he denies any dizziness or lightheadedness, he denies any nausea or vomiting, he denies any fevers or chills, he denies any chest pain or palpitations, he denies any other neurologic symptoms such as weakness or paresthesias. In summary, this is a 61-year-old male who presents to the emergency department with chief complaint of headache and blurred vision while driving. He states that he was driving when he suddenly had a occipital headache with blurred vision and felt like he was going to pass out. He did have some tingling into his left hand, but denies any overt unilateral weakness or deficits. He came to the emergency department for further evaluation Results - Labs Result diagrams: 12/11/17 03:09 12/11/17 03:09 Abnormal lab results 12/10/17 12/10/17 12/10/17 Range/Units 13:54 13:54 20:53 RBC (4.50-5.90) mil/mm3 [place] % (Auto) 8.8 H (0.0-8.0) % Chloride (98-107) meq/L Creatinine 1.42 H (0.60-1.30) mg/dL Estimated GFR 50 L (>89) mL/min Random Glucose 108 H (74-106) mg/dL Calcium 8.4 L (8.5-10.1) mg/dL Troponin I Less than 0.02 L Less than 0.02 L (0.02-0.05) ng/mL Triglycerides (42-150) mg/dL HDL Cholesterol (40.0-60.0) mg/dL 12/11/17 12/11/17 12/11/17 Range/Units 03:09 03:09 03:09 RBC 4.39 L (4.50-5.90) mil/mm3 [place] % (Auto) 9.2 H (0.0-8.0) % Chloride 109 H (98-107) meq/L Creatinine 1.32 H (0.60-1.30) mg/dL Estimated GFR 55 L (>89) mL/min Random Glucose (74-106) mg/dL Calcium (8.5-10.1) mg/dL Troponin I Less than 0.02 L (0.02-0.05) ng/mL Triglycerides 392 H (42-150) mg/dL HDL Cholesterol 29.5 L (40.0-60.0) mg/dL Short CBC 12/10/17 12/11/17 Range/Units 13:54 03:09 WBC 7.4 6.0 (4.0-11.0) th/mm3 Hgb 14.8 13.9 (13.0-17.0) gm/dL Hct 41.5 39.7 (39.0-51.0) % Plt Count 230 212 (150-450) th/mm3 BMP 12/10/17 12/11/17 13:54 03:09 Sodium 141 142 Potassium 3.8 4.1 Chloride 107 109 H Carbon Dioxide 25.2 27.7 BUN 14 15 Creatinine 1.42 H 1.32 H Calcium 8.4 L 8.6 Cardiac Enzymes 12/10/17 12/10/17 12/11/17 Range/Units 13:54 20:53 03:09 Total Creatine Kinase 92 (39-308) U/L Troponin I Less than 0.02 L Less than 0.02 L Less than 0.02 L (0.02-0.05) ng/mL Liver Function 12/10/17 Range/Units 13:54 Total Bilirubin 0.4 (0.2-1.0) mg/dL AST 21 (15-37) U/L ALT 30 (12-78) U/L Alkaline Phosphatase 73 (45-117) U/L Albumin 3.6 (3.4-5.0) g/dL - Imaging Impressions Carotid Doppler Study 12/10/17 00:00 CONCLUSION: 1. Right Internal Carotid Artery: No significant stenosis or atherosclerotic plaque is visualized. 2. Left Internal Carotid Artery: No significant stenosis or atherosclerotic plaque is visualized. Head MRI 12/10/17 00:00 CONCLUSION: 1. Negative exam with no evidence of stroke, mass or hemorrhage. Head MRA 12/10/17 00:00 CONCLUSION: 1. Unremarkable examination. Head CT 12/10/17 13:31 CONCLUSION: 1. Negative CT Head non contrast. Physical Exam Vital signs: Vital Signs 12/10/17 15:03 12/10/17 16:46 12/10/17 18:18 Temperature 98.0 F Pulse Rate 69 69 62 Respiratory Rate 15 16 14 Blood Pressure 163/91 H 169/105 H 175/99 H Pulse Oximetry 97 99 99 12/10/17 18:23 12/10/17 20:09 12/10/17 22:43 Temperature 97.9 F 97.9 F Pulse Rate 64 60 57 L Respiratory Rate 17 16 Blood Pressure 172/102 H 140/89 118/70 Pulse Oximetry 97 96 12/11/17 03:47 12/11/17 03:48 12/11/17 03:51 Temperature 97.4 F L 97.4 F L 97.4 F L Pulse Rate 59 L 60 55 L Respiratory Rate 16 16 16 Blood Pressure 116/73 131/78 141/88 H Pulse Oximetry 96 95 95 12/11/17 08:00 12/11/17 08:21 12/11/17 08:23 Temperature 98.7 F 98.7 F Pulse Rate 60 57 L 58 L Respiratory Rate 18 18 Blood Pressure 137/84 154/89 H Pulse Oximetry 97 96 12/11/17 08:24 12/11/17 12:18 Temperature 98.7 F Pulse Rate 62 63 Respiratory Rate 18 18 Blood Pressure 159/94 H 168/84 H Pulse Oximetry 97 98 Intake & Output 12/10/17 12/11/17 12/11/17 18:59 06:59 18:59 Intake Total 1000 / 1000 50 / 50 Balance 1000 / 1000 50 / 50 Weight 83.915 kg Intake: IV 1000 / 1000 NS Inj 1,000 ML @ Wide Open IV. 1000 / 1000 SIG BOLUS ONE Rx#:[id number] Oral 50 / 50 Other: # Voids 1 Date of Last Bowel Movement 12/10/17 Weight On Admission 83.915 kg Narrative: GENERAL: well developed, normal mood and affect, answers questions appropriately. NEUROLOGICAL: Speech- Fluent. No dysarthria or dysphasia. Good focus, attention , and comprehension. Cranial nerves- 2 through 12 intact. Face- No facial droop. No tongue deviation. Pronator drift test-negative RESPIRATORY: CTAB, no wheezing, crackles, or increased WOB. CARDIOVASCULAR: RRR, no m/r/g. Normal S1, S2 heart sounds. ABDOMEN: S/ NT/ND. SKIN: Essentially clear with no significant rash or lesions. Adequate skin turgor. Assessment and Plan - Assessment (1) Visual changes Code(s): H53.9 - Unspecified visual disturbance Status: Acute Plan: Likely related to hypertensive urgency rather than due to neurologic abnormality CT of the brain negative MRI of the brain negative MRA of the brain negative Ultrasound of the carotids shows no significant stenosis 2D echocardiogram has been ordered and pending, patient will likely get this done as an outpatient Blood pressure elevated on arrival of 187/94, home blood pressure medications were held to allow permissive hypertension in the event that this could have been a neurologic issue such as TIA or CVA. We will begin home blood red pressure medications this morning PT evaluated patient and found no deficits (2) HTN (hypertension) Code(s): I10 - Essential (primary) hypertension Status: Acute Plan: On home Coreg, ramipril and clonidine Restart home medications today given normal neurologic imaging (3) Elevated serum creatinine Code(s): R79.89 - Other specified abnormal findings of blood chemistry Status : Acute Plan: Creatinine 1.42 on admission, unsure of baseline -Trend BMP -Monitor I/O -Avoid nephrotoxic agents (4) CAD (coronary artery disease) Code(s): I25.10 - Atherosclerotic heart disease of [place] coronary artery without angina pectoris Status: Acute Plan: Continue home Plavix (5) Nutrition, metabolism, and development symptoms Code(s): R63.8 - Other symptoms and signs concerning food and fluid intake Status: Acute Plan: Plan to discharge home on normal, cardiac diet
--- NOTE | 2017-12-11 16:36 | ECG ---
Date Performed: 12/10/2017 Time Performed: 13:46:16 PTAGE: 62 years EKG: Sinus rhythm POSSIBLE ANTERIOR MYOCARDIAL INFARCTION,age indeterminate probably old. ABNORMAL ECG NO PREVIOUS TRACING DOCTOR: Stephan Teran Interpretating Date/Time 12/11/2017 16:34:40
[2017-12-11 17:17] LABS: Hemoglobin A1c 5.4 % (4.3-6.0)
== END 2017-12-11 13:04 | disposition home or self-care (01) ==
LOC: NEDA 12:58 → NEPE 12:58 → NEPGCP 12:58
PROVIDERS: ADMIT Family Medicine; ATTEND Family Medicine
DX: Z88.8 Allergy status to other drugs, medicaments and biological substances; I25.10 Atherosclerotic heart disease of native coronary artery without angina pectoris; Z90.49 Acquired absence of other specified parts of digestive tract; R79.89 Other specified abnormal findings of blood chemistry; R55 Syncope and collapse; I16.0 Hypertensive urgency; H53.9 Unspecified visual disturbance; Z79.02 Long term (current) use of antithrombotics/antiplatelets; Z95.5 Presence of coronary angioplasty implant and graft; E78.00 Pure hypercholesterolemia, unspecified; I10 Essential (primary) hypertension